=== PATIENT | male | born 1980 | race Caucasian/White ===

== ENCOUNTER 2017-03-02 11:03 | Emergency (ER) | payer SELFPAY ==
[~2017-03-02] VITALS: Ht 172.7 cm; Wt 136.0 kg
[~2017-03-02 11:03] MED LIST: ECOT81TA2 PO; GLUCTAB PO; LISI5 PO
[2017-03-02 11:06] VITALS: BP 138/87; PULSE 103; RESP 16; TEMP 98.5; O2SAT 98
[2017-03-02] MEDS ORDERED: SODIUM CHLOR 0.9% 1000 ML INJ 1,000 ML IV SCH (11:23)
[2017-03-02] MEDS ORDERED: KETOROLAC TROMETHAMINE 30 MG/ML (IVP) VIAL IV PUSH ONE (11:30)
[2017-03-02] MEDS ORDERED: SODIUM CHLORIDE 0.9% FLUSH 10 ML FLUSH IV FLUSH PRN (11:30)
[2017-03-02] MEDS ORDERED: ONDANSETRON HCL 4 MG/2 ML VIAL IVP ONE (11:30)
--- NOTE | 2017-03-02 11:33 | PD ---
HPI Chief Complaint: Flank/Kidney Pain Time Seen by Provider: 11:26 Travel History International Travel<30 days: No Contact w/Intl Traveler<30days: No Traveled to known affect area: No History of Present Illness HPI 36 year old male presents to the emergency department department for left flank pain that radiates to left lower quadrant of the abdomen and down to the left testicle that started approximately one week ago. He states he had diarrhea approximately 2 days ago, but this is resolved. He had a bowel movement this morning which was normal. Patient denies any nausea or vomiting. He denies any history of nephrolithiasis. Patient states pain is currently 4/10. He states it is in the left flank, left lower abdomen and left testicle. Patient denies any fevers. He states he had chills 2 days ago, but no current chills. No chest pain or shortness of breath. He denies any previous abdominal surgeries. He has history of diabetes and hypertension and takes metformin and lisinopril. He denies any penile discharge. He denies risk of STD reporting a monogamous relationship for 2 years. PFSH Past Medical History Blood Disorders: No Anxiety: Yes Heart Rhythm Problems: No Cancer: Yes (ADRENAL ADENOMA.) Cardiovascular Problems: Yes High Cholesterol: No Chest Pain: Yes Congestive Heart Failure: No Diabetes: Yes Diminished Hearing: No Endocrine: Yes Gastrointestinal Disorders: No Genitourinary: No Headaches: Yes Hypertension: Yes Immune Disorder: No Implanted Vascular Access Dvce: No Neurologic: No Psychiatric: Yes Reproductive: No Respiratory: No Pneumonia: Yes Past Surgical History Oral Surgery: Yes (TWO TEETH REMOVED) Other Surgery: Yes (FINGER REATTACHED, TWO TEETH REMOVED.) Social History Alcohol Use: No Tobacco Use: No (QUIT December, USES VAPORIZER) Substance Use: No Allergies-Medications (Allergen,Severity, Reaction): Coded Allergies: No Known Allergies (Verified , 03/02/17) Reported Meds & Prescriptions Reported Meds & Active Scripts Active Metformin Hcl (Metformin HCl) 500 Mg Tab 500 Mg PO BIDPC Prinivil 5 mg (Lisinopril) 5 Mg Tab 5 Mg PO DAILY Ecotrin (Aspirin) 81 Mg Tabec 81 Mg PO DAILY Review of Systems Except as stated in HPI: all other systems reviewed are Neg Physical Exam Narrative GENERAL: Well-nourished, well-developed male patient, ambulatory and in no acute distress. Afebrile. SKIN: Focused skin assessment warm/dry. HEAD: Normocephalic. Atraumatic. EYES: No scleral icterus. No injection or drainage. NECK: Supple, trachea midline. No JVD or lymphadenopathy. CARDIOVASCULAR: Regular rate and rhythm without murmurs, gallops, or rubs. RESPIRATORY: Breath sounds equal bilaterally. No accessory muscle use. Lung sounds are clear to auscultation throughout. GASTROINTESTINAL: Abdomen soft and nondistended. Patient has tenderness to palpation over the left lower quadrant. MUSCULOSKELETAL: No cyanosis, or edema. BACK: Nontender without obvious deformity. Left CVA tenderness. GENITOURINARY: Circumcised. Testes descended bilaterally without evidence of rotation. No lesions or erythema. No urethral discharge. Patient has tenderness to palpation over left testicle. This exam was done with the RN, MARYAM , at bedside. Data Data Last Documented VS Vital Signs Date Time Temp Pulse Resp B/P Pulse Ox O2 Delivery O2 Flow Rate FiO2 03/02/17 11:49 99 03/02/17 11:06 98.5 103 16 138/87 Room Air Orders Complete Blood Count With Diff (03/02/17 11:23) Comprehensive Metabolic Panel (03/02/17 11:23) Lipase (03/02/17 11:23) Urinalysis - C+S If Indicated (03/02/17 11:23) Ct Abd/Pel W/O Iv Contrast (03/02/17 11:23) Iv Access Insert/Monitor (03/02/17 11:23) Ecg Monitoring (03/02/17 11:23) Oximetry (03/02/17 11:23) Ondansetron Inj (Zofran Inj) (03/02/17 11:30) Sodium Chlor 0.9% 1000 Ml Inj (Ns 1000 M (03/02/17 11:23) Sodium Chloride 0.9% Flush (Ns Flush) (03/02/17 11:30) Ketorolac Inj (Toradol Inj) (03/02/17 11:30) Us Testicles W Doppler (03/02/17 ) Labs Laboratory Tests Test 03/02/17 03/02/17 11:35 13:00 White Blood Count 9.0 TH/MM3 Red Blood Count 5.32 MIL/MM3 Hemoglobin 16.6 GM/DL Hematocrit 48.4 % Mean Corpuscular Volume 91.1 FL Mean Corpuscular Hemoglobin 31.2 PG Mean Corpuscular Hemoglobin 34.2 % Concent Red Cell Distribution Width 13.1 % Platelet Count 297 TH/MM3 Mean Platelet Volume 8.0 FL Neutrophils (%) (Auto) 76.8 % Lymphocytes (%) (Auto) 17.2 % Monocytes (%) (Auto) 4.8 % Eosinophils (%) (Auto) 0.8 % Basophils (%) (Auto) 0.4 % Neutrophils # (Auto) 6.9 TH/MM3 Lymphocytes # (Auto) 1.6 TH/MM3 Monocytes # (Auto) 0.4 TH/MM3 Eosinophils # (Auto) 0.1 TH/MM3 Basophils # (Auto) 0.0 TH/MM3 CBC Comment DIFF FINAL Differential Comment Sodium Level 139 MEQ/L Potassium Level 3.9 MEQ/L Chloride Level 108 MEQ/L Carbon Dioxide Level 20.8 MEQ/L Anion Gap 10 MEQ/L Blood Urea Nitrogen 13 MG/DL Creatinine 0.93 MG/DL Estimat Glomerular Filtration 92 ML/MIN Rate Random Glucose 140 MG/DL Calcium Level 9.7 MG/DL Total Bilirubin 0.9 MG/DL Aspartate Amino Transf 19 U/L (AST/SGOT) Alanine Aminotransferase 41 U/L (ALT/SGPT) Alkaline Phosphatase 69 U/L Total Protein 8.0 GM/DL Albumin 4.1 GM/DL Lipase 211 U/L Urine Color YELLOW Urine Turbidity CLEAR Urine pH 5.5 Urine Specific [place] 1.022 Urine Protein TRACE mg/dL Urine Glucose (UA) NEG mg/dL Urine Ketones 40 mg/dL Urine Occult Blood NEG Urine Nitrite NEG Urine Bilirubin NEG Urine Urobilinogen LESS THAN 2.0 MG/DL Urine Leukocyte Esterase NEG Urine RBC 1 /hpf Urine WBC 2 /hpf Urine Hyaline Casts 2 /lpf Urine Mucus FEW /lpf Microscopic Urinalysis Comment CULT NOT INDICATED MDM Medical Decision Making Medical Screen Exam Complete: Yes Emergency Medical Condition: Yes Medical Record Reviewed: Yes Interpretation(s) Last Impressions Abdomen/Pelvis CT 03/02/17 1123 Signed Impressions: Service Date/Time: Thursday, March 02, 2017 11:54 - CONCLUSION: Stable left adrenal adenoma. KMario Mclean MD Scrotum Ultrasound 03/02/17 0000 Signed Impressions: Service Date/Time: Thursday, March 02, 2017 11:28 - CONCLUSION: Small bilateral hydroceles otherwise negative. Kelton Reynoso MD FACR Differential Diagnosis Nephrolithiasis versus diverticulitis versus epididymitis versus UTI Narrative Course 36 year old male presents to the emergency department for evaluation of left flank pain that radiates to the left lower quadrant and the right testicle for 1 week. On exam, he has tenderness over left flank, left lower quadrant, and left testicular pain to palpation. CBC, CMP, Lipase, UA are ordered and pending. CT abdomen/pelvis without contrast and US testicles are ordered and pending. Patient is given NS 1 L IV bolus, Toradol 30 mg IV, Zofran 4 mg IV. CBC shows no acute abnormality. CMP shows no acute abnormality. Lipase is 211. UA is negative for acute infection. CT abdomen/pelvis shows no acute abnormality. US testicles shows small bilateral hydroceles otherwise negative. Laboratory and imaging findings are reassuring. Patient is instructed to follow with his primary care physician. He verbalizes agreement and understanding. Diagnosis Primary Impression: Abdominal pain Qualified Code: R10.9 - Abdominal pain, unspecified location Referrals: Primary Care Physician call for appointment Patient Instructions: Abdominal Pain (ED), General Instructions Additional Instructions: Take ibuprofen as instructed as needed with food for pain. Follow-up with your primary care physician. Return to the emergency department for any acute worsening of symptoms. Med/Other Pt SpecificInfo: Prescription(s) given Scripts Ibuprofen 800 Mg Rce129 Mg PO TID PRN (PAIN SCALE 1 TO 10) #21 TAB Ref 0 Prov:Twyla Floyd 03/02/17 Disposition: 01 DISCHARGE HOME Condition: Stable Twyla Floyd Mar 02, 2017 11:33
[2017-03-02 11:49] VITALS: O2SAT 99
[2017-03-02 12:06] LABS: AUTOMATED NEUTROPHIL # 6.9 TH/MM3 (1.8-7.7); BASOPHIL % 0.4 % (0.0-2.0); EOSINOPHIL # 0.1 TH/MM3 (0-0.4); EOSINOPHIL % 0.8 % (0.0-4.0); HEMATOCRIT 48.4 % (39.0-51.0); HEMO FLAGS DIFF FINAL; LYMPH % 17.2 % (9.0-44.0); LYMPHOCYTE # 1.6 TH/MM3 (1.0-4.8); MEAN CELL VOLUME 91.1 FL (80.0-100.0); MEAN CORPUSCULAR HEMOGLOBIN 31.2 PG (27.0-34.0); MEAN CORPUSCULAR HGB CONC 34.2 % (32.0-36.0); MONO % 4.8 % (0.0-8.0); NEUT % 76.8 % (16.0-70.0); PLATELET COUNT 297 TH/MM3 (150-450); RED BLOOD COUNT 5.32 MIL/MM3 (4.50-5.90); RED CELL DISTRIBUTION WIDTH 13.1 % (11.6-17.2)
--- NOTE | 2017-03-02 12:11 | RADRPT ---
EXAM DATE/TIME: 03/02/2017 11:28 [facility] COMPARISON: No previous studies available for comparison. INDICATIONS : Pain left testicle. MEDICAL HISTORY : Hypertension. Adrenal adenoma. Diabetes. Headache. SURGICAL HISTORY : two teeth removed. Left index finger reattached. ENCOUNTER: Initial ACUITY: 4 - 6 days PAIN SCORE: 5/10 LOCATION: Bilateral testicles. MEASUREMENTS: RIGHT TESTICLE: 4.6 x 3.2 x 2.3cm LEFT TESTICLE: 4.8 x 3.2 x 2.7cm FINDINGS: RIGHT TESTICLE: Homogeneous echotexture without intra or extratesticular mass. Blood flow is symmetric and within no rmal limits. Small hydrocele is evident. Epididymis is within normal limits. LEFT TESTICLE: Homogeneous echotexture without intra or extratesticular mass. Blood flow is symmetric and within no rmal limits. Hydrocele is evident there. Epididymis is within normal limits. SCROTUM: Within normal limits. CONCLUSION: Small bilateral hydroceles otherwise negative. Kelton Reynoso MD FACR on March 02, 2017 at 12:02 Board Certified Radiologist. This report was verified electronically.
--- NOTE | 2017-03-02 12:16 | RADRPT ---
EXAM DATE/TIME: 03/02/2017 11:54 [facility] COMPARISON: CT ABDOMEN & PELVIS W CONTRAST, October 23, 2014, 20:45. INDICATIONS : Left flank pain radiating to left testicle ORAL CONTRAST: No oral contrast ingested. RADIATION DOSE: 16.47 CTDIvol (mGy) MEDICAL HISTORY : Cardiovascular disease. Hypertension. Diabetes mellitus type 2.Adrenal adenoma SURGICAL HISTORY : None. ENCOUNTER: Initial ACUITY: 1 day PAIN SCALE: 4/10 LOCATION: Left flank TECHNIQUE: Volumetric scanning of the abdomen and pelvis was performed. Using automated exposure control and ad justment of the mA and/or kV according to patient size, radiation dose was kept as low as reasonably achievable to obtain optimal diagnostic quality images. DICOM format image data is available electro nically for review and comparison. FINDINGS: CT Abdomen: The liver, spleen, pancreas, kidneys, right adrenal are unremarkable. There is no evidenc e for any appreciable pathological adenopathy, free fluid, or bowel obstruction. There is no evidenc e for any stones in the kidneys or the course of the ureters on either side. There is no hydronephros is. Approximate 2.5 cm left adrenal mass is present not changed since 2014 measured in the same dimen sheila characteristic of adenoma. There is minimal prominence of the right adrenal gland not significan tly changed CT pelvis: There is no evidence for mass, abscess formation, or any significant adenopathy within the pelvis. The prostate gland is inhomogeneous and measures 3.1 x 4.5 cm in AP and transverse diameters and nonspecific. CONCLUSION: Stable left adrenal adenoma. Santana Mclean MD on March 02, 2017 at 12:10 Board Certified Radiologist. This report was verified electronically.
[2017-03-02 12:31] LABS: ALT (GPT) 41 U/L (12-78)
[2017-03-02 12:34] LABS: ALKALINE PHOSPHATASE 69 U/L (45-117); TOTAL BILIRUBIN ADULT 0.9 MG/DL (0.2-1.0)
[2017-03-02 12:49] LABS: ANION GAP 10 MEQ/L (5-15); AST (GOT) 19 U/L (15-37); BICARBONATE 20.8 MEQ/L (21.0-32.0); BLOOD UREA NITROGEN 13 MG/DL (7-18); CHLORIDE 108 MEQ/L (98-107); GLOMERULAR FILTRATION RATE 92 ML/MIN (>89); POTASSIUM 3.9 MEQ/L (3.5-5.1); SODIUM (NA) 139 MEQ/L (136-145)
[2017-03-02 13:15] LABS: BLOOD, URINE NEG (NEG); COMMENT (UR) CULT NOT INDICATED; CULTURE IF INDICATED CULT NOT INDICATED; GLUCOSE,URINE NEG (NEG); HYALINE CAST, URINE 2 /lpf (RARE); KETONE, URINE 40 mg/dL (NEG); MUCUS URINE FEW /lpf (OCC); NITRITE,URINE NEG (NEG); PH, URINE 5.5 (5.0-8.5); URINE COLOR YELLOW (YELLW/STRAW)
[2017-03-02] MEDS ORDERED: IBUP800T23 PO (13:21)
== END 2017-03-02 13:42 | disposition home or self-care (01) ==
LOC: NEPD 11:03
DX: R10.32 Left lower quadrant pain (principal); I10 Essential (primary) hypertension; E11.9 Type 2 diabetes mellitus without complications; Z79.82 Long term (current) use of aspirin; Z79.84 Long term (current) use of oral hypoglycemic drugs; Z87.891 Personal history of nicotine dependence
CPT/HCPCS: 74176; 76870; 80053; 81001; 83690; 85025; 93975; 96374; 99285; J1885; J7030

== ENCOUNTER 2018-06-10 14:37 | Observation (INO) ==
--- NOTE | 2018-06-10 17:57 | ED ---
HPI General Chief Complaint: Chest Pain Stated Complaint: chest pain Time Seen by Provider: 06/10/18 17:21 History of Present Illness HPI narrative: This patient complains of chest discomfort. He has some sternal heaviness on and off for the last week. Not particularly exertionally induced. No exacerbating factors or alleviating factors. He also complains of periodic high blood pressure spikes. Whenever his blood pressure spikes he takes 1 of his mother's lisinopril 20 mg tablets. He denies personal history of cardiac or pulmonary disease. Severity is moderate. He says that he was diagnosed with an adrenal adenoma 10 years ago but never followed up to get it evaluated or rechecked. Related Data Home Medications Medication Instructions Recorded Confirmed No Known Home Medications 06/10/18 06/10/18 Allergies Allergy/AdvReac Type Severity Reaction Status Date / Time No Known Allergies Allergy Uncoded 03/02/17 11:10 Review of Systems ROS: all other systems reviewed are negative [facility] Medical History Medical History Diabetes (Acute) Social History Social History Substance History: No History of Abuse Smoking Status: Never smoker How Often Do You Have a Drink Containing Alcohol: Never Recent Travel in [facility] within the Last 8 Weeks: No Recent Out of Country Travel within the Last 8 Weeks: No Exam Narrative Exam Narrative: GENERAL: Well-nourished, well-developed patient in no apparent distress. SKIN: Focused skin assessment reveals no rash and nodules. Skin is Warm and dry. HEAD: Atraumatic. Normocephalic. EYES: Pupils equal and round. No scleral icterus. No injection or drainage. ENT: No nasal bleeding or discharge. Mucous membranes pink and moist. NECK: Trachea midline. No JVD. CARDIOVASCULAR: Regular rate and rhythm. No murmur appreciated. RESPIRATORY: No accessory muscle use. Clear to auscultation. Breath sounds equal bilaterally. GASTROINTESTINAL: Abdomen soft, non-tender, nondistended. Hepatic and splenic margins not palpable. MUSCULOSKELETAL: No obvious deformities. No clubbing. No cyanosis. No edema. NEUROLOGICAL: Awake and alert. No obvious cranial nerve deficits. Motor grossly within normal limits. Normal speech. PSYCHIATRIC: Appropriate mood and affect; insight and judgment normal. Course Initial Documented Vital Signs Pulse Rate 106 H 06/10/18 14:47 Respiratory Rate 22 06/10/18 14:47 Blood Pressure 145/80 H 06/10/18 14:47 Pulse Oximetry 97 06/10/18 14:47 Last Documented Vital Signs Pulse Rate 65 06/10/18 18:00 Respiratory Rate 16 06/10/18 18:00 Blood Pressure 148/62 H 06/10/18 18:00 Pulse Oximetry 99 06/10/18 18:00 Medical Decision Making MDM Narrative Medical decision making narrative: 38-year-old male with hypertension and smoking presents with a week of intermittent chest pressure. Workup here is negative. He is a low risk patient at age 38 but a hypertensive smoker. I placed him in the chest pain center to rule out cardiac cause of his symptoms. He is agreeable. Medical Screen Exam Complete: Yes Emergency Medical Condition: Yes Lab Data Lab results narrative: Labs are normal Result diagrams: 06/10/18 18:00 06/10/18 18:00 Lab Results 06/10/18 06/10/18 06/10/18 Range/Units 18:00 18:00 18:00 WBC 8.2 (4.0-11.0) th/mm3 RBC 4.75 (4.50-5.90) mil/mm3 Hgb 15.9 (13.0-17.0) gm/dL Hct 43.3 (39.0-51.0) % MCV 91.1 (80.0-100.0) fL MCH 33.4 (27.0-34.0) pg MCHC 36.6 H (32.0-36.0) % RDW 12.4 (11.6-17.2) % Plt Count 276 (150-450) th/mm3 MPV 7.7 (7.0-11.0) fL Prelim Diff (Auto) Slide review pending Neut % (Auto) 66.3 (16.0-70.0) % Lymph % (Auto) 26.8 (9.0-44.0) % Rains % (Auto) 5.1 (0.0-8.0) % Eos % (Auto) 1.1 (0.0-4.0) % Baso % (Auto) 0.7 (0.0-2.0) % Neut # (Auto) 5.5 (1.8-7.7) th/mm3 Lymph # (Auto) 2.2 (1.0-4.8) th/mm3 Rains # (Auto) 0.4 (0.0-0.9) th/mm3 Eos # (Auto) 0.1 (0.0-0.4) th/mm3 Baso # (Auto) 0.1 (0.0-0.2) th/mm3 WBC Differential . Diff Scan Auto diff confirmed Differential Comment . Sodium 143 (136-145) meq/L Potassium 3.8 (3.5-5.1) meq/L Chloride 111 H (98-107) meq/L Carbon Dioxide 25.4 (21.0-32.0) meq/L Anion Gap 7 (5-15) meq/L BUN 11 (7-18) mg/dL Creatinine 0.90 (0.60-1.30) mg/dL Estimated GFR Greater than 89 (>89) mL/min Random Glucose 82 (74-106) mg/dL Calcium 8.9 (8.5-10.1) mg/dL Total Bilirubin 0.3 (0.2-1.0) mg/dL AST 14 L (15-37) U/L ALT 25 (12-78) U/L Alkaline Phosphatase 58 (45-117) U/L Total Creatine Kinase 52 (39-308) U/L Troponin I Less than 0.02 L (0.02-0.05) ng/mL Total Protein 7.4 (6.4-8.2) g/dL Albumin 3.9 (3.4-5.0) g/dL Imaging Data Attestation: I personally reviewed and interpreted this imaging study as follows : My impression: Chest x-ray is normal Radiologist's impression: Chest X-Ray 06/10/18 17:44 CONCLUSION: No evidence of acute cardiopulmonary disease. ECG Data EKG Prior to Arrival: No Attestation: I personally reviewed and interpreted this ECG as follows: Prior ECG tracings: not available for review Interpretation: EKG shows a sinus rhythm at 88. No ST elevation. [place] and DC interval are normal Discharge Plan Physicians Team ED Provider: Antonio Dang Primary Care Provider: Primary Care MontyiAngelina Rxs /Orders / Referrals /Forms Prescriptions: No Action No Known Home Medications RF: 0 Discharge Interventions Interventions: Vital Signs Last Done: 06/10/18 14:47 Status ED Status: With Doctor
[2018-06-10 18:18] LABS: Baso # (Auto) 0.1 th/mm3 (0.0-0.2); Baso % (Auto) 0.7 % (0.0-2.0); Eos # (Auto) 0.1 th/mm3 (0.0-0.4); Eos % (Auto) 1.1 % (0.0-4.0); Hematocrit 43.3 % (39.0-51.0); Hemoglobin 15.9 gm/dL (13.0-17.0); Lymph # (Auto) 2.2 th/mm3 (1.0-4.8); Lymph % (Auto) 26.8 % (9.0-44.0); Mean Corpuscular Hemoglobin 33.4 pg (27.0-34.0); Mean Corpuscular Volume 91.1 fL (80.0-100.0); Mean Platelet Volume 7.7 fL (7.0-11.0); Mono # (Auto) 0.4 th/mm3 (0.0-0.9); Mono % (Auto) 5.1 % (0.0-8.0); Neut # (Auto) 5.5 th/mm3 (1.8-7.7); Neut % (Auto) 66.3 % (16.0-70.0); Platelet Count 276 th/mm3 (150-450); Red Blood Count 4.75 mil/mm3 (4.50-5.90); Red Cell Distribution Width 12.4 % (11.6-17.2); White Blood Count 8.2 th/mm3 (4.0-11.0)
[2018-06-10 18:19] LABS: Mean Corpuscular HGB Conc 36.6 % (32.0-36.0)
[2018-06-10 18:36] LABS: Albumin 3.9 g/dL (3.4-5.0); Anion Gap 7 meq/L (5-15); Aspartate Aminotransferase 14 U/L (15-37); Blood Urea Nitrogen 11 mg/dL (7-18); Calcium 8.9 mg/dL (8.5-10.1); Carbon Dioxide 25.4 meq/L (21.0-32.0); Chloride 111 meq/L (98-107); Glomerular Filtration Rate Greater Than 89 mL/min (>89); Glucose,Random 82 mg/dL (74-106); Potassium 3.8 meq/L (3.5-5.1); Sodium 143 meq/L (136-145)
[2018-06-10 18:37] LABS: Alanine Aminotransferase 25 U/L (12-78)
[2018-06-10 18:41] LABS: Alkaline Phosphatase 58 U/L (45-117); Total Protein 7.4 g/dL (6.4-8.2)
--- NOTE | 2018-06-10 18:53 | XR ---
EXAM DATE: 06/10/2018 6:36 PM EST AGE/SEX: 38 years / Male INDICATIONS: Short of breath. Chest pain. CLINICAL DATA: This is the patient's initial encounter. Patient reports that signs and symptoms have been present for 1 day and indicates a pain score of 5/10. MEDICAL/SURGICAL HISTORY: Non-responsive. Non-responsive. COMPARISON: [facility] [place] SING[place] AP, 11/15/[place]. . FINDINGS: A single AP view of the chest demonstrates the lungs to be symmetrically aerated without evidence of mass, infiltrate or effusion. The cardiomediastinal contours are unremarkable. Osseous structures a re intact. CONCLUSION: No evidence of acute cardiopulmonary disease. Electronically signed by: Niraj Douglas MD 06/10/2018 6:52 PM EST
--- NOTE | 2018-06-10 19:05 | ECG ---
Date Performed: 06/10/2018 Time Performed: 14:59:55 PTAGE: 38 years EKG: Sinus rhythm NORMAL ECG No significant change from prior electrocardiogram. PREVIOUS TRACING : 11/15/2014 19.49 DOCTOR: Rebel Brian Interpretating Date/Time 06/10/2018 19:04:23
[2018-06-10 21:34] VITALS: RESP 18
[2018-06-10 22:35] LABS: Creatine Kinase 53 U/L (39-308)
[2018-06-11 00:48] LABS: Creatine Kinase 47 U/L (39-308)
[2018-06-11 04:07] VITALS: O2SAT 98
[2018-06-11 07:35] VITALS: BP 121/82; PULSE 66; TEMP 97.7
[2018-06-11] MEDS ORDERED: Aspirin 325 MG Tablet PO SCH (09:00)
--- NOTE | 2018-06-11 09:09 | P.HPCA ---
History of Present Illness Primary Care Physician: No Primary Care Physician Chief Complaint: Chest pain History of Present Illness: Is a 38-year-old male with stated history of diabetes and adrenal adenoma that presents to ED with complaint of 2 weeks of intermittent chest discomforts as well as noticing his blood pressure to be spiking every once in a while, and sensation of heart beating rapidly. He states heart rate is been as high as in the 120s. States that whenever his blood pressure spikes that he will take 1 of his mother's lisinopril 20 mg tablets. Chest discomfort is moderate. Describes as a heaviness in the left side of his chest. When it occurs last for minutes. Has not noticed shortness of breath, nausea, or diaphoresis. States he has not followed up for his management of his diabetes or adrenal adenoma. States he currently is taking no medication. He is trying to quit smoking is currently vaping. Cannot recall ever having a stress test or heart catheterization. History of adrenal adenoma, diabetes. Denies diagnoses of hypertension, hyperlipidemia, and CAD. Denies family history of CAD. He continues to vape. - Diagnosis (1) Chest pain (2) Palpitations (3) Tobacco abuse (4) History of adrenal adenoma (5) Diabetes Review of Systems General: Patient denies fevers, chills, and recent travel. HEENT: Patient denies headache, sore throat, difficulty swallowing. Cardiovascular: Has the chest discomfort as mentioned above. Denies sensation of heart beating rapidly or irregularly. No syncope. Denies diaphoresis. Respiratory: Denies shortness of breath or inspirational chest discomfort. Denies coughing wheezing or hemoptysis. GI: Patient denies nausea, vomiting, diarrhea, abdominal pain, bloody stools. Musculoskeletal: Patient denies joint pain or edema. Denies calf pain or edema. Neurovascular: Patient denies numbness, tingling, weakness in extremities. Denies headache. Endocrine: Denies polyuria and polydipsia. Hematologic: Denies easy bruising. Skin: Denies rash or itching. PMFSH - History History Provided By: Patient - Medical History Medical History: Medical History (Last Updated 06/10/18 @ 18:10 by Danni Decker) Diabetes - Tobacco History Second Hand Smoke Exposure: Yes Tobacco Use In Past 30 Days: Yes Smoking Status: Current every day smoker Tobacco Type: E-Cigarettes - Alcohol History How Often Do You Have a Drink Containing Alcohol: Never - Substance Use History Substance History: Active Abuse - Substance Use Type Marijuana Status: Active Route Used: Inhalation Comment: "LOWERS HIS BLOOD SUGAR." - Travel History Recent Travel in the [place] Within the Last 8 Weeks: No Recent Travel Out of the Country Within the Last 8 Weeks: No - Immunization History Tetanus Immunization: >5 Years Hx Influenza Vaccine This Season: No Medications and Allergies Active Medications: Active Medications Aspirin (Aspirin) 325 mg PO DAILY [facility] Ondansetron HCl (Zofran Inj) 4 mg IV.PUSH Q6H PRN PRN Reason: NAUSEA Sodium Chloride (Ns Flush) 2 ml IV.FLUSH UNSCH PRN PRN Reason: FLUSH AFTER USING IV ACCESS Sodium Chloride (Ns Flush) 2 ml IV.FLUSH BID [facility] Last Admin: 06/10/18 21:35 Dose: 2 ml Sodium Chloride (Ns Flush) 2 ml IV.FLUSH PRN PRN PRN Reason: FLUSH AFTER USING IV ACCESS Allergies Allergy/AdvReac Type Severity Reaction Status Date / Time No Known Allergies Allergy Uncoded 03/02/17 11:10 Home Medications Medication Instructions Recorded Confirmed Type No Known Home Medications 06/10/18 06/10/18 History Exam Vital signs: Vital Signs 06/10/18 14:47 06/10/18 18:00 06/10/18 19:27 Temperature Pulse Rate 106 H 65 71 Respiratory Rate 22 16 15 Blood Pressure 145/80 H 148/62 H 129/77 Pulse Oximetry 97 99 98 06/10/18 20:00 06/10/18 21:33 06/10/18 23:29 Temperature 97.9 F 98.1 F Pulse Rate 52 L 76 74 Respiratory Rate 18 18 Blood Pressure 132/83 119/75 122/74 Pulse Oximetry 97 99 99 06/11/18 04:00 06/11/18 07:34 Temperature 97.9 F 97.7 F Pulse Rate 58 L 66 Respiratory Rate 18 18 Blood Pressure 130/77 121/82 Pulse Oximetry 98 98 Intake & Output 06/10/18 06/11/18 06/11/18 18:59 06:59 18:59 Weight 113.398 kg Narrative: GENERAL: This is a well-nourished, well-developed patient, in no apparent distress. Patient speaks in clear complete sentences. Patient is pleasant. HEENT: Head is atraumatic and normocephalic. Neck is supple without lymphadenopathy and trachea is midline. No JVD or carotid bruits. CARDIOVASCULAR: Regular rate and rhythm without murmurs, gallops, or rubs. RESPIRATORY: Clear to auscultation. Breath sounds equal bilaterally. No wheezes , rales, or rhonchi. Chest wall is nontender. No use of accessory muscles. GASTROINTESTINAL: Abdomen is nontender, nondistended. Abdomen soft. No obvious pulsatile mass or bruit. No CVA tenderness. Strong femoral pulses bilaterally. Normal bowel sounds in all quadrants. MUSCULOSKELETAL: Patient is moving upper and lower extremities freely. No calf tenderness or edema, no Homans sign. Strong pulses in upper and lower extremities. NEUROLOGICAL: Patient is alert and oriented. Cranial nerves 2-12 are grossly intact. No focal deficits and speech is clear. SKIN: No rash and turgor is normal. Results 06/10/18 18:00 06/10/18 18:00 Cardiac Enzymes 06/10/18 06/10/18 06/11/18 Range/Units 18:00 21:00 00:00 AST 14 L (15-37) U/L Troponin I Less than 0.02 L Less than 0.02 L Less than 0.02 L (0.02-0.05) ng/mL CBC 06/10/18 Range/Units 18:00 WBC 8.2 (4.0-11.0) th/mm3 RBC 4.75 (4.50-5.90) mil/mm3 Hgb 15.9 (13.0-17.0) gm/dL Hct 43.3 (39.0-51.0) % Plt Count 276 (150-450) th/mm3 Neut # (Auto) 5.5 (1.8-7.7) th/mm3 Lymph # (Auto) 2.2 (1.0-4.8) th/mm3 [place] # (Auto) 0.4 (0.0-0.9) th/mm3 Eos # (Auto) 0.1 (0.0-0.4) th/mm3 Baso # (Auto) 0.1 (0.0-0.2) th/mm3 Comprehensive Metabolic Panel 06/10/18 Range/Units 18:00 Sodium 143 (136-145) meq/L Potassium 3.8 (3.5-5.1) meq/L Chloride 111 H (98-107) meq/L Carbon Dioxide 25.4 (21.0-32.0) meq/L BUN 11 (7-18) mg/dL Creatinine 0.90 (0.60-1.30) mg/dL Calcium 8.9 (8.5-10.1) mg/dL AST 14 L (15-37) U/L ALT 25 (12-78) U/L Alkaline Phosphatase 58 (45-117) U/L Total Protein 7.4 (6.4-8.2) g/dL Albumin 3.9 (3.4-5.0) g/dL - Imaging and Cardiology Imaging: Impressions Chest X-Ray 06/10/18 17:44 CONCLUSION: No evidence of acute cardiopulmonary disease. EKG interpretations - EKG EKG shows: sinus rhythm (EKGs are sinus rhythm without significant ST segment depressions or elevations.) Caprini VTE Risk Assessment Caprini VTE Risk Assessment: No/Low Risk (score <= 1) Caprini Risk Assessment Model: Point Value = 1 Point Value = 2 Point Value = 3 Point Value = 5 Age 41-60 Minor surgery BMI > 25 kg/m2 Swollen legs Varicose veins or History of unexplained or recurrent spontaneous Oral contraceptives or hormone replacement Sepsis (< 1 month) Serious lung disease, including pneumonia (< 1 month) Abnormal pulmonary function Acute myocardial infarction Congestive heart failure (< 1 month) History of inflammatory bowel disease Medical patient at bed rest Age 61-74 Arthroscopic surgery Major open surgery (> 45 min) Laparoscopic surgery (> 45 min) Malignancy Confined to bed (> 72 hours) Immobilizing plaster cast Central venous access Age >= 75 History of VTE Family history of VTE Factor V Leiden Prothrombin [id number] Lupus anticoagulant Anticardiolipin antibodies Elevated serum homocysteine Heparin-induced thrombocytopenia Other congenital or acquired thrombophilia Stroke (< 1 month) Elective arthroplasty Hip, pelvis, or leg fracture Acute spinal cord injury (< 1 month) Prophylaxis Regimen: Total Risk Factor Score Risk Level Prophylaxis Regimen 0-1 Low Early ambulation 2 Moderate Order ONE of the following: *Sequential Compression Device (SCD) *Heparin 5000 units SQ BID 3-4 Higher Order ONE of the following medications: *Heparin 5000 units SQ TID *Enoxaparin/Lovenox 40 mg SQ daily (WT < 150 kg, CrCl > 30 mL/min) *Enoxaparin/Lovenox 30 mg SQ daily (WT < 150 kg, CrCl > 10-29 mL/min) *Enoxaparin/Lovenox 30 mg SQ BID (WT < 150 kg, CrCl > 30 mL/min) AND/OR *Sequential Compression Device (SCD) 5 or more Highest Order ONE of the following medications: *Heparin 5000 units SQ TID (Preferred with Epidurals) *Enoxaparin/Lovenox 40 mg SQ daily (WT < 150 kg, CrCl > 30 mL/min) *Enoxaparin/Lovenox 30 mg SQ daily (WT < 150 kg, CrCl > 10-29 mL/min) *Enoxaparin/Lovenox 30 mg SQ BID (WT < 150 kg, CrCl > 30 mL/min) AND *Sequential Compression Device (SCD) Assessment and Plan - Assessment (1) Chest pain Code(s): R07.9 - Chest pain, unspecified Status: Acute (2) Palpitations Code(s): R00.2 - Palpitations Status: Acute (3) Tobacco abuse Code(s): Z72.0 - Tobacco use Status: Acute (4) History of adrenal adenoma Code(s): Z86.018 - Personal history of other benign neoplasm Status: Acute (5) Diabetes Code(s): E11.9 - Type 2 diabetes mellitus without complications Status: Acute - Plan * Chest pain: Patient has had serial cardiac enzymes and EKGs for ruling out purposes. He has been seen by Dr. Hoffman of cardiology in the chest pain center and will undergo a Tom protocol ETT. He will be discharged home if the stress test is nonischemic with instructions to follow-up PCP. * History of diabetes: Patient will be on sliding scale insulin coverage while in chest pain center. Currently denies taking any medication. He is to follow diabetic diet and follow-up PCP for proper treatment of diabetes. The only includes to control his blood sugars but also HENIRETTA inhibitor and statin therapy. * History of adrenal adenoma: Patient will need follow-up with an outpatient physician. This was initially seen on a prior visit. At that time outpatient follow-up was recommended. * Tobacco abuse: Patient counseled importance of smoking cessation. Patient is stable at this time. He is agreeable to this plan. H&P: Quality - VTE Deep Vein Thrombosis/Pulmonary Embolism Present on Admission: No
--- NOTE | 2018-06-11 16:48 | TR ---
Date Performed: 06/11/2018 Time Performed: 10:15:31 DOCTOR: Georgette Hoffman DRUG LIST: CLINICAL HISTORY: REASON FOR TEST: REASON FOR ENDING: OBSERVATION: CONCLUSION: ANEL PROTOCOL. NO CP. TEST STOPPED AFTER EXCEEDING GOAL HR SECONDARY TO SOB AND LEG FATIGUE.Maximum LB=106 % Max HR Achieved=86.0% Maximum PE=727/80 Total Exercise Time=8:00 COMMENTS: No ischemia
--- NOTE | 2018-06-11 16:51 | ECG ---
Date Performed: 06/11/2018 Time Performed: 00:24:52 PTAGE: 38 years EKG: Sinus rhythm NORMAL ECG Since PREVIOUS TRACING , no significant change noted DOCTOR: Georgette Hoffman Interpretating Date/Time 06/11/2018 16:50:02
--- NOTE | 2018-06-11 16:52 | ECG ---
Date Performed: 06/10/2018 Time Performed: 21:49:41 PTAGE: 38 years EKG: Sinus rhythm INCOMPLETE RIGHT BUNDLE BRANCH BLOCK BORDERLINE ECG Since PREVIOUS TRACING , no significant change noted DOCTOR: Georgette Hoffman Interpretating Date/Time 06/11/2018 16:50:35
== END 2018-06-11 11:30 | disposition home or self-care (01) ==
LOC: NEPC 14:37 → NEDA 14:37 → NEPHCDU 20:15
PROVIDERS: ADMIT Internal Medicine Cardiovascular Disease; ATTEND Internal Medicine Cardiovascular Disease